=== PATIENT | male | born 1940 | race Caucasian/White ===

== ENCOUNTER → 2020-02-26 | Outpatient (CLI) | payer MEDICARE, BC, SELFPAY ==
--- NOTE | 2020-02-26 | IMM_PTH ---
PATIENT: KAMLESH ALANIZ LOC: [facility] U#:[id number] AGE/SX: 79/M ROOM: RE02/26/[address]: Dr. Eduardo Anna MD : 1940 BED: DIS: 02/26/2020 SPEC #: [id number] RECD: 02/27/20 12:00 STATUS: LESLYE REPadmini #: [id number] CUCA: 02/26/20 00:[address]: Eduardo Anna DEPT: IMMUNOHISTOCHEMISTRY RECD BY: Brooklynn Boateng ENTERED: 02/27/20 12:01 SP TYPE: IMMUNO OTHR DR: Dr. Margarito Boucher MD Tissues: B - PROSTATE RIGHT Procedures: Pankeratin (add) P40 (add) 34BE12 (initial) PHYSICIAN & INSTITUTION [place] [id number] SPECIMEN INFORMATION: Tissue Source: B - Right prostate, mid, core biopsy Clinical Info: Elevated PSA Specimen Number: [id number] CPT code: 73942, 23075 x2 METHODOLOGY: Deparaffinized sections of prefer/formalin-fixed tissue or PAP/DQ stained slides are incubated with monoclonal/polyclonal antibodies/oligonucleotide probes. Localization is made via biotin free immunoperoxidase method. Appropriate controls are performed and reacted as expected. Results on target cell population are indicated in the following table: RESULTS: ANTIBODY / CLONE RESULT Block B P40 (BC28) negative 34BE12 (34BE12) negative AE1-3 (AE1/AE3/PCK26) positive These tests were developed and their performance characteristics determined by [facility]. They may not have been cleared or approved by the U.S. Food and Drug Administration. The FDA has determined that such clearance or approval is not necessary. The above immunohistochemical/dualISH markers are ordered and reviewed by the Pathologist. INTERPRETATION: B. Right prostate, mid, core biopsy: Focal atypical small acinar proliferation (OSMANI). See comment. YAIR:jose 03/01/20 Comment: Atypical focus consisting of only two glands.
--- NOTE | 2020-02-26 08:00 | PROSBIL_PTH ---
PATIENT: KAMLESH ALANIZ LOC: [facility] U#:[id number] AGE/SX: 79/M ROOM: RE02/26/[address]: Dr. Eduardo Anna MD : 1940 BED: DIS: 02/26/2020 SPEC #: [id number] RECD: 02/26/20 11:36 STATUS: LESLYE REPadmini #: [id number] CUCA: 02/26/20 08:[address]: Eduardo Anna DEPT: SURGICAL PATHOLOGY RECD BY: Kelton Verde ENTERED: 02/27/20 09:18 SP TYPE: PROST BX LESLIE DR: Dr. Shane Ferrari, DO Tissues: A - PROSTATE RIGHT B - PROSTATE RIGHT C - PROSTATE RIGHT D - PROSTATE LEFT E - PROSTATE LEFT F - PROSTATE LEFT Procedures: PROSTATE BX HEADER OPERATION: Prostate biopsy PRE-OP DIAGNOSIS: Elevated PSA TISSUE SUBMITTED: A - Right apex, B - Right mid, C - Right base, D - Left apex, E - Left mid, F - Left base MICROSCOPIC DIAGNOSIS A. Right prostate, apex, core biopsy: Prostatic tissue, negative for malignancy. B. Right prostate, mid, core biopsy: Focal atypical small acinar proliferation (OSMANI). See comment. C. Right prostate, base, core biopsy: Prostatic tissue, negative for malignancy. D. Left prostate, apex, core biopsy: Prostatic tissue, negative for malignancy. Focal basal cell hyperplasia. E. Left prostate, mid, core biopsy: Prostatic tissue, negative for malignancy. F. Left prostate, base, core biopsy: Prostatic tissue, negative for malignancy. Focal mild chronic inflammation. SJ:jose 02/27/20 COMMENT B. Immunohistochemistry ([id number]) supports the above diagnosis. Atypical focus consists of only two glands. Case has been reviewed in consultation with Dr. Renner who concurs with the above diagnosis. IDC:AM MICROSCOPIC DESCRIPTION Slides are reviewed. GROSS DESCRIPTION A - Received is one container designated prostate, right apex. The specimen consists of one elongated fragment of light sierra-white soft tissue measuring 1 cm in length and 0.1 cm in diameter. The specimen is totally submitted in one cassette. B - Received is one container designated prostate, right mid. The specimen consists of two elongated fragments of light sierra-white soft tissue measuring 0.5 and 1 cm in length and 0.1 cm in diameter. The specimen is totally submitted in one cassette. C - Received is one container designated prostate, right base. The specimen consists of one elongated fragment of light sierra-white soft tissue measuring 1.5 cm in length and 0.1 cm in diameter. The specimen is totally submitted in one cassette. D - Received is one container designated prostate, left apex. The specimen consists of one elongated fragment of light sierra-white soft tissue measuring 1.1 cm in length and 0.1 cm in diameter. The specimen is totally submitted in one cassette. E - Received is one container designated prostate, left mid. The specimen consists of one elongated fragment of light sierra-white soft tissue measuring 1 cm in length and 0.1 cm in diameter. The specimen is totally submitted in one cassette. F - Received is one container designated prostate, left base. The specimen consists of one elongated fragment of light sierra-white soft tissue measuring 1.2 cm in length and 0.1 cm in diameter. The specimen is totally submitted in one cassette. / SJ:rg 02/26/20 TC:5 CPT: G0146
== END | disposition home or self-care (01) ==
PROVIDERS: PCP Family Medicine; Referring Provider Urology; Visit Provider Urology
DX: R97.20 Elevated prostate specific antigen [PSA] (principal)
CPT/HCPCS: 88305; 88341; 88342; G0416

== ENCOUNTER → 2020-09-23 08:39 | Outpatient (CLI) | payer MEDICARE, BC, SELFPAY ==
--- NOTE | 2020-09-23 08:44 | EKG12_ITS ---
Test Reason : PREOP Blood Pressure : / mmHG Vent. Rate : 060 BPM Atrial Rate : 060 BPM P-R Int : 206 ms QRS Dur : 098 ms QT Int : 436 ms P-R-T Axes : 037 -24 008 degrees QTc Int : 436 ms Normal sinus rhythm Inferior infarct , age undetermined Abnormal ECG Confirmed by MARTIN DUMONT, RAMIRO ([id number]), fan mail editor MENDY MEREDITH ([id number]) on 09/27/2020 10:25:14 A M Referred By: Eduardo Anna Confirmed By:MAMTA SALAZAR MD
== END ==
PROVIDERS: PCP Family Medicine; Referring Provider Urology; Visit Provider Urology
DX: Z01.812 Encounter for preprocedural laboratory examination (principal); Z11.59 Encounter for screening for other viral diseases; I10 Essential (primary) hypertension
CPT/HCPCS: 87635; 93005; C9803; U0005; U0003

== ENCOUNTER 2020-11-10 07:19 | Day surgery (SDC) | payer MEDICARE, BC, SELFPAY ==
[2020-11-10] VITALS (7 sets, daily range): BP systolic 111–134; BP diastolic 61–79; PULSE 57–80; RESP 16; TEMP 36.5–37; O2SAT 95–97; BMI 26.5
[2020-11-10] MEDS: Lactated Ringers 1,000 ML 100 ML IV ×2 (08:10→10:16)
--- NOTE | 2020-11-10 09:46 | PCM.HP.STD ---
HPI - General HPI Narrative KAMLESH ALANIZ, is a 80 M who presentsFor placement of gold markers and spacer gel for radiation treatments [facility] Medical History (Updated 11/10/20 @ 09:[address] Eduardo Anna MD) History of arthritis History of high cholesterol History of hypothyroidism History of low back pain History of prostate cancer Hypertension Non-smoker Pain aggravated by walking Home Medications levothyroxine 112 mcg PO DAILY 11/09/20 [History Last Taken 11/10/20] lisinopril-hydrochlorothiazide 1 tab PO DAILY 11/09/20 [History Last Taken Unknown] sildenafil 25 mg PO DAILY PRN 11/09/20 [History Last Taken Unknown] simvastatin 20 mg PO QHS 11/09/20 [History Last Taken Unknown] tamsulosin [Flomax] 0.4 mg PO QHS 11/09/20 [History Last Taken Unknown] ciprofloxacin HCl [Cipro] 500 mg PO BID #14 tab 11/10/20 [Rx Last Taken Unknown] Allergy/AdvReac Type Severity Reaction Status Date / Time No Known Allergies Allergy Verified 11/10/20 07:41 Surgical History (Updated 11/09/20 @ 09:48 by Wendy Olivares) History of colonoscopy History of lumbar fusion Hx of cardiac catheterization Hx of total knee arthroplasty Hx of total knee arthroplasty Social History Smoking Status: Never smoker Vital Signs Vital Signs Vital Signs: 11/10/20 08:02 Temperature 97.8 F Temperature Source Temporal Pulse Rate 80 Respiratory Rate 16 Respiratory Pattern Normal Blood Pressure 134/79 H Blood Pressure Mean 97 Blood Pressure Source Monitor Blood Pressure Position Semi-Fowlers Blood Pressure Location Right Arm Pulse Ox 96 Oxygen Delivery Method Room Air Physical Exam Const alert and oriented x3 General Appearance: cooperative HEENT normocephalic, head/scalp atraumatic, EAC's normal and TM's normal bilaterally Eyes PERRL and EOMs intact bilaterally Pupil: sluggish Neck no lymphadenopathy, supple and no JVD General: trachea midline Lymph Lymphatic: no lymphadenopathy noted, lymphedema and lymphadenopathy Resp normal respiratory effort, normal air movement and clear to auscultation bilaterally Cardio regular rate, regular rhythm and peripheral pulses 2+ throughout GI soft to palpation, non-tender and non-distended Extremity normal capillary refill and no clubbing, cyanosis or edema General Extremity: no tenderness to palpation of joints or extremities Skin no rashes or lesions noted General Skin Exam: turgor normal Lesions: no lesions Rashes: no rashes Neuro CN's II-XII intact bilaterally Speech: speech normal Motor Exam: strength 5/5 throughout; Negative for general weakness Psych thought process normal, cooperative and affect normal Appearance: appropriate Assessment & Plan Assessment/Plan (1) Prostate cancer: Status: Acute Code(s): C61 - Malignant neoplasm of prostate Plan: Plan to place gold markers and spacer gel in the OR
[2020-11-10] MEDS: Cefazolin 2 GM in 0.9% Normal Saline 100 ML IV (09:47)
--- NOTE | 2020-11-10 09:48 | PCM.DC ---
Discharge Instructions Outpatient Procedure Reason For Visit: SPACE OAR, GOLD MARKERS Diet Discharge Diet: No restrictions Activity Discharge Activity: Return to Normal Activity May resume sexual activity in: No Restrictions Dressing / Incision Call your doctor if you observe: Fever of 101 or Higher Follow Up Care Test Results: Test results from this visit will be discussed in further detail at your follow-up appointment, if applicable. Discharge Plan Admission Primary Reason for Your Visit: placement of gold markers and spacer gel for radiation planning. Attending Provider: Eduardo Anna Primary Care Provider: Margarito Boucher Discharge Orders/Prescriptions Prescriptions: New ciprofloxacin HCl [Cipro] 500 mg tablet 500 mg PO BID Qty: 14 RF: 0 No Action sildenafil 25 mg Tablet 25 mg PO DAILY PRN (Reason: Erectile Dysfunction) RF: 0 tamsulosin [Flomax] 0.4 mg Capsule 0.4 mg PO QHS RF: 0 simvastatin 20 mg Tablet 20 mg PO QHS RF: 0 lisinopril-hydrochlorothiazide 20-25 mg Tablet 1 tab PO DAILY RF: 0 levothyroxine 112 mcg Capsule 112 mcg PO DAILY RF: 0 Referrals: Margarito Boucher MD [Primary Care Provider] -
--- NOTE | 2020-11-10 10:10 | OP.PCM_ITS ---
Report of Operation Date of Procedure: 11/10/20 Pre-Operative Diagnosis: Prostate cancer Post-Operative Diagnosis: Same Surgery/Procedure Performed:: Transrectal ultrasound guided placement of gold fiducial markers and transrectal ultrasound guided placement of a spacer organ matrix gel Description of Surgical Findings:: Patient was taken back to the operating room, after induction of anesthesia, he was placed in dorsolithotomy position. The patient had a bowel prep preoperatively. He was given IV antibiotics preoperatively. He underwent a timeout procedure. He was marked and the procedure was reviewed with the operating room staff. Once he was in dorsolithotomy position. The genitals and perineum were prepped and draped in the usual sterile fashion. I then introduced a biplanar ultrasound probe into the rectum and performed ultrasonography on the prostate. The prostate seminal vesicles, the base, the mid prostate, the apex were identified. The Denonvilliers' fascia was also identified. I first advanced the first marker in the patient's right side to the mid prostate and deployed the first memorial marker designer. The second memorial marker designer was then advanced under ultrasound guidance to the patient's left mid prostate . And finally the third memorial marker designer was advanced of the prostate left apex and deployed under ultrasound guidance. All 3 markers were confirmed to be present within the prostate on ultrasonography. The genitals and perineum were prepped and draped in usual sterile fashion. I then introduced a biplanar ultrasound probe into the rectum and performed ultrasonography and identified the Denonvilliers' fascia the prostate mid base and apex and seminal vesicles. The spacer gel mix was then prepared on the back table per manufactures instruction. Under ultrasound guidance in the midline perineum a bevel needle down we advanced through the perineum below the prostate into the space of Denonvilliers' fascia. This space which could be identified by ultrasound with a bright white layer between the prostate and the rectum. I then injected a puff of normal saline to identify the space further. After I confirmed that the needle was in the correct space in the mid prostate and the space of Denonvilliers' fascia between the rectum and the prostate. Then over the course of 15 seconds the gel matrix was injected slowly there was nice separation between the prostate and the rectum at the gel matrix was injected. The position of the gel matrix was confirmed by ultrasound. Then the injection needle was removed intact. Patient's perineum was cleaned patient was taken out of stirrups and then taken back to the PACU in good condition. Type of Anesthesia: General Admit VTE Documentation VTE Present on Admission: No VTE Mechan Device Prophylaxis: SCD's
== END 2020-11-10 12:10 ==
LOC: SDC 07:19 → AC 07:20
PROVIDERS: PCP Family Medicine; Referring Provider Urology; Visit Provider Urology
PROC: (CPT 55874; principal; 2020-11-10 09:10)
DX: C61 Malignant neoplasm of prostate (principal); R97.20 Elevated prostate specific antigen [PSA]; N40.1 Benign prostatic hyperplasia with lower urinary tract symptoms; R35.0 Frequency of micturition; R35.1 Nocturia; R39.12 Poor urinary stream; I10 Essential (primary) hypertension; E78.00 Pure hypercholesterolemia, unspecified; E03.9 Hypothyroidism, unspecified; M19.90 Unspecified osteoarthritis, unspecified site; Z79.899 Other long term (current) drug therapy
CPT/HCPCS: 00902; 55874; 55876; J7120; J2405

== ENCOUNTER → 2020-11-25 13:37 | Outpatient (CLI) | payer MEDICARE, BC, SELFPAY ==
[2020-11-10 08:02] VITALS: BMI 26.5
[2020-11-25 15:14] LABS: Absolute Lymphocyte Count 2.37 X10^3/uL (0.83-4.51); Absolute Neutrophil Count 5.1 X10^3/uL (2.0-7.7); Basophil# 0.02 X10^3/uL; Basophil% 0.2 % (0-1); Eosinophil# 0.09 X10^3/uL; Eosinophils% 1.1 % (0-5); Hematocrit 41.6 % (40-54); Hemoglobin 13.5 g/dL (13.0-16.5); Lymphocyte # 2.37 X10^3/ul (0.83-4.51); Lymphocyte % 28.5 % (19-41); Mean Corp Hgb Conc 32.5 g/dL (32-36); Mean Corpuscular Hgb 30.2 pg (27.0-32.0); Mean Corpuscular Volume 93.1 fL (80-94); Mean Platelet Vol. 8.8 fl (6.2-12.0); Monocyte% 8.4 % (0-10); NRBC Flagged by Analyzer 0 % (0-5); Neutrophil # 5.06 X10^3/uL (2.7-7.7); Platelet Count 189 K/mm3 (150-450); RBC Distribution Width CV 13.2 % (11.6-14.6); RBC Distribution Width SD 45.2 fl (35.1-43.9); Red Blood Count 4.47 M/mm3 (4.6-6.2); White Blood Count 8.3 K/mm3 (4.4-11.0)
[2020-11-25 15:31] LABS: Creatinine, Serum 1.18 mg/dL (0.70-1.30); EST Glomerular Filtration Rate 63 mL/min (>60); Est Glom Filt Rate - Afr Amer 77 mL/min (>60)
== END ==
PROVIDERS: PCP Family Medicine; Referring Provider Radiology Radiation Oncology; Visit Provider Radiology Radiation Oncology
DX: Z01.818 Encounter for other preprocedural examination (principal); C61 Malignant neoplasm of prostate
CPT/HCPCS: 36415; 82565; 84153; 85025

== ENCOUNTER → 2020-11-26 13:48 | Outpatient (CLI) | payer MEDICARE, BC, SELFPAY ==
[2020-11-10 08:02] VITALS: BMI 26.5
--- NOTE | 2020-11-26 13:53 | CT_ITS ---
STUDY: CT PELVIS WITH CONTRAST REASON FOR EXAM: Male, 80 years old. PROSTATE CA. Radiation therapy planning. RADIATION DOSAGE (If Supplied By Facility): CTDIvol = ( 23.47 ) mGy, DLP = ( 2132.96 ) mGycm TECHNIQUE: Transaxial imaging of the pelvis was performed without oral contrast. IV 100ML ISOVUE 300 was administered intravenously. Individualized dose optimization techniques were used for this CT. COMPARISON: None. FINDINGS: Normal urinary bladder. The prostate measures 5.3 cm x 5.6 cm. This causes indentation of the bladder base. Metallic radiation seeds are seen within the prostate gland. Normal visualized small intestine. Normal visualized colon. There is no pelvic fluid. There is no pelvic lymphadenopathy or mass lesion. There is diffuse atherosclerotic calcification of the pelvic arteries. Small bilateral inguinal hernias worse on the left side. Small umbilical hernia containing fat. Degenerative changes of the lumbar spine. Prior fusion of the lower lumbar spine. CT/CT Pelvis W/CONT Therapy IMPRESSION: Prostatic enlargement with indentation of the bladder base. Electronically Signed: Apolinar Del Toro MD at 14:49 EDT , Service support ,
== END ==
PROVIDERS: PCP Family Medicine; Referring Provider Radiology Radiation Oncology; Visit Provider Radiology Radiation Oncology
DX: C61 Malignant neoplasm of prostate (principal); Z79.899 Other long term (current) drug therapy
CPT/HCPCS: 51600; 72193; Q9965; Q9967

== ENCOUNTER → 2020-12-22 09:26 | Outpatient (CLI) | payer MEDICARE, BC, SELFPAY ==
[2020-11-10 08:02] VITALS: BMI 26.5
[2020-12-22 12:04] LABS: Absolute Lymphocyte Count 0.77 X10^3/uL (0.83-4.51); Absolute Neutrophil Count 3.2 X10^3/uL (2.0-7.7); Basophil# 0.01 X10^3/uL; Basophil% 0.2 % (0-1); Eosinophil# 0.08 X10^3/uL; Eosinophils% 1.7 % (0-5); Hematocrit 37.6 % (40-54); Hemoglobin 12.5 g/dL (13.0-16.5); Lymphocyte # 0.77 X10^3/ul (0.83-4.51); Lymphocyte % 16.1 % (19-41); Mean Corp Hgb Conc 33.2 g/dL (32-36); Mean Corpuscular Hgb 30.8 pg (27.0-32.0); Mean Corpuscular Volume 92.6 fL (80-94); Mean Platelet Vol. 9.3 fl (6.2-12.0); Monocyte# 0.67 X10^3/uL; NRBC Flagged by Analyzer 0 % (0-5); Neutrophil # 3.22 X10^3/uL (2.7-7.7); Neutrophil % 67.6 % (47-70); Platelet Count 132 K/mm3 (150-450); RBC Distribution Width CV 13.2 % (11.6-14.6); RBC Distribution Width SD 45.1 fl (35.1-43.9); Red Blood Count 4.06 M/mm3 (4.6-6.2); White Blood Count 4.8 K/mm3 (4.4-11.0)
== END ==
PROVIDERS: PCP Family Medicine; Referring Provider Radiology Radiation Oncology; Visit Provider Radiology Radiation Oncology
DX: C61 Malignant neoplasm of prostate (principal)
CPT/HCPCS: 36415; 85025

== ENCOUNTER → 2022-02-20 | Outpatient (CLI) | payer MEDICARE, BC, SELFPAY ==
[2022-02-20 10:59] LABS: PSA,Total- Diagnostic 0.02 ng/mL (0.0-4.0)
== END | disposition home or self-care (01) ==
LOC: LAB 08:45
PROVIDERS: PCP Family Medicine; Referring Provider Urology; Visit Provider Urology
DX: C61 Malignant neoplasm of prostate (principal)
CPT/HCPCS: 36415; 84153

== ENCOUNTER → 2022-08-21 | Outpatient (CLI) | payer MEDICARE, BC, SELFPAY ==
[2022-08-21 10:34] LABS: PSA,Total- Diagnostic 0.01 ng/mL (0.0-4.0)
== END | disposition home or self-care (01) ==
LOC: LAB 09:46
PROVIDERS: PCP Family Medicine; Referring Provider Registered Nurse; Visit Provider Registered Nurse
DX: C61 Malignant neoplasm of prostate (principal)
CPT/HCPCS: 36415; 84153

== ENCOUNTER → 2023-07-31 | Outpatient (CLI) | payer MEDICARE, BC, SELFPAY ==
--- OUTSIDE RECORDS SUMMARY | 2023-07-31 09:26 | XMS RPT_ITS | CCD ---
Author Name Unknown Address [address] [place] [address] Organization [facility] Care Team Providers Care Mixing Machine Tender Cork Gasket Name Role Phone ABELINO BOUCHER Unavailable Unavailable SAPNA EASTMAN Unavailable Unavailab ABELINO Cleaning Unavailable Unavailable ABELINO BOUCHER Unavailable Unavailable Andrez Alvarado Unavailable Unavailable Abelino Boucher Unavailable Unavailable Abelino Boucher Unavailable Abelino Boucher Primary Care Provider Abelino Boucher Unavailable Unavailable Unavailable Abelino Boucher Unavailable Zeina Stevens Unavailable Unavailable Dr. Abelino Boucher Referring Unavailab malgorzata Boucher, Dr. Abelino Rousseau Attending Unavailab Dr. Abelino Cleaning Primary Care UnavailAbelino Mendoza MD Primary Care Provider Abelino Boucher MD Unavailable [phone] ABELINO BOUCHER Attending Unavailable ABELINO BOUCHER Primary Care Unavailable iMchaela Clark Unavailable Dr. Abelino Barnard Primary Care Unavailab Ms. Zeina Stewart Attending Unavail able Ms. Michaela Clark Attending Dr. Abelino Segura Primary Care Unavailab ABELINO Cleaning Primary Care Unavailable MICHAELA CLARK Attending Unavailable MICHAELA CLARK Referring Unavailable ABELINO BOUCHER Primary Care Unavailable Medications Current Medications Medication Drug Class(es) Dates Sig (Normalized) Sig (Original) [id number] 200 actuat albuterol 0.09 mg/actuat metered dose inhaler (1 source) beta2-Adrenergic Agonist Start: 04-18-2023 End: 04-17-2024 take 2 puff(s) by inhalation every six hours for wheezing albuterol 90 mcg/actuation inhaler Indications: Wheezing , Acute cough , Acute bronchitis, unspecified organism Inhale 2 puffs every 6 hours if needed for wheezing. 18 g 0 04/18/2023 04/17/2024 Active albuterol 0.833 mg/ml / ipratropium bromide 0.167 mg/ml inhalation solution (1 source) Anticholinergic, beta2-Adrenergic Agonist Start: 04-18-2023 ipratropium-albute roL (Duo-Neb) 0.5-2.5 mg/3 mL nebulizer solution 3 mL amoxicillin 875 mg / clavulanate 125 mg oral tablet (1 source) Penicillin-class Antibacterial Start: 04-18-2023 End: 04-25-2023 take 1 tablet by mouth twice daily amoxicillin-pot clavulanate (Augmentin) 875-125 mg tablet Indications: Acute bronchitis, unspecified organism Take 1 tablet (875 mg) by mouth 2 times a day for 7 days. 14 tablet 0 04/18/2023 04/25/2023 Active azithromycin 250 mg oral tablet (2 sources) Macrolide Antimicrobial Start: 04-12-2023 take 2 tablets by mouth once, then take 1 tablet by mouth once daily azithromycin 250 mg oral tablet ; Take 2 tabs (500mg) x 1 days, then 1 tab (250mg) once daily x 4 days Quantity: 6 Refills: 0 Ordered: 12-Apr-2023 Michaela Clark Start: 12-Apr-2023 Generic Substitution Allowed Comments: Do not take dairy products, antacids, or iron preparations within one hour of this medication.Finish all this medication unless otherwise directed by prescriber. Completed/Discontinued Medications Medication Drug Class(es) Dates Sig (Normalized) Sig (Original) fexofenadine hydrochloride 180 mg oral tablet (8 sources) Histamine-1 Receptor Antagonist Start: 10-02-2019 take 1 tablet by mouth once daily as needed Fexofenadine HCl - 180 MG Oral Tablet TAKE 1 TABLET DAILY NEEDED FOR ALLERGIES. Quantity: 90 Refills: 3 Ordered: 19-Jan-2021 Abelino Boucher MD Start : 02-Oct-2019 Active hydrocortisone acetate 25 mg rectal suppository (4 sources) Corticosteroid Start: 09-13-2021 End: 03-08-2022 Anusol-HC 25 MG Rectal Suppository INSERT 1 SUPPOSITORY RECTALLY DAILY. Quantity: 7 Refills: 1 Ordered: 13-Sep-2021 Abelino Boucher MD Start : 13-Sep-2021 End : 08-Mar-2022 Complete Problems Active Problems Problem Classification Problem Date Documented Da te Episodic/Chronic Acquired foot deformities (10 sources) Foot-drop; Translations: [Other acquired deformities of ankle and foot] Episodic Acute bronchitis (6 sources) Acute bronchitis; Translations: [Acute bronchitis] Onset: 04-12-2023 06-21-2022 Episodic Cancer of prostate (8 sources) Malignant tumor of prostate; Translations: [Malignant neoplasm of prostate] Chronic Chronic kidney disease (5 sources) Chronic kidney disease stage 3A ; Translations: [Chronic kidney disease, Stage III (moderate)] Onset: 03-15-2023 03-15-2023 Chronic Chronic kidney disease (2 sources) Chronic kidney disease; Translations: [Chronic kidney disease, stage 3a (CMS/HCC)] Onset: 03-15-2023 Deficiency and other anemia (8 sources) Anemia; Translations: [Anemia, unspecified] Episodic Disorders of lipid metabolism (15 sources) Hyperlipidemia; Translations: [Other and unspecified hyperlipidemia] Onset: 03-15-2023 03-15-2023 Chronic Essential hypertension (13 sources) Hypertensive disorder; Translations: [Unspecified essential hypertension] Onset: 03-15-2023 03-15-2023 Chronic Genitourinary symptoms and ill-defined conditions (2 sources) Nocturia; Translations: [Nocturia] Episodic Headache; including migraine (1 source) Headache; including migraine; Translations: [Headache, unspecified] Onset: 04-12-2023 Hemorrhoids (5 sources) External hemorrhoids; Translations: [External hemorrhoids without mention of complication] Episodic Hyperplasia of prostate (2 sources) Benign prostatic hyperplasia; Translations: [BPH (benign prostatic hyperplasia)] Chronic Immunizations and screening for infectious disease (3 sources) Immunization due; Translations: [Encounter for immunization] Onset: 03-15-2023 03-15-2023 Episodic Intestinal infection (2 sources) Diarrhea of presumed infectious origin; Translations: [Diarrhea of presumed infectious origin] Episodic Malaise and fatigue (1 source) Other malaise; Translations: [Other malaise] Onset: 04-12-2023 Episodic Other connective tissue disease (2 sources) Unspecified rotator cuff tear or rupture of left shoulder, not specified as traumatic; Translations: [Unspecified rotator cuff tear or rupture of left shoulder, not specified as traumatic] Onset: 04-01-2018 Episodic Other lower respiratory disease (3 sources) Cough; Translations: [Acute cough] 06-21-2022 Episodic Past or Other Problems Problem Classification Problem Date Documented Da te Episodic/Chronic Unclassified (2 sources) Onset: 03-15-2023 03-15-2023 Unclassified (1 source) Acute cough; Translations: [Acute cough] Onset: 04-18-2023 NEGATED: Highlighted row has not occurred!Residual codes; unclassified (2 sources) Disease Episodic Results Test Name Value Interpretation Reference Range Facil ity Vital Signs Date Time Vital Sign Value Performing Clinician Facility 04-18-2023 11:36-0400 Body height 182.9 cm Michaela Clark SHUTTLER CAR-OPHTHALMOLOGIST Work Phone: [facility] 04-18-2023 11:36-0400 Body mass index (BMI) [Ratio] 27.12 kg/m2 Michaela Clark SHUTTLER CAR-OPHTHALMOLOGIST Work Phone: [facility] 04-18-2023 11:36-0400 Body temperature 97.59 [degF] Michaela Clark SHUTTLER CAR-OPHTHALMOLOGIST Work Phone: [facility] 04-18-2023 11:36-0400 Body weight 90.72 kg Michaela Clark SHUTTLER CAR-OPHTHALMOLOGIST Work Phone: [facility] 04-18-2023 11:36-0400 Diastolic blood pressure 74 mm[Hg] Michaela Clark SHUTTLER CAR-OPHTHALMOLOGIST Work Phone: [facility] 04-18-2023 11:36-0400 Heart rate 68 /min Michaela Clark SHUTTLER CAR-OPHTHALMOLOGIST Work Phone: [facility] 04-18-2023 11:36-0400 Respiratory rate 14 /min Michaela Clark SHUTTLER CAR-OPHTHALMOLOGIST Work Phone: [facility] 04-18-2023 11:36-0400 SaO2% (BldA) [Mass fraction] 94 % Michaela Clark SHUTTLER CAR-OPHTHALMOLOGIST Work Phone: [facility] 04-18-2023 11:36-0400 Systolic blood pressure 137 mm[Hg] Michaela Clark SHUTTLER CAR-OPHTHALMOLOGIST Work Phone: [facility] 04-12-2023 11:48-0400 Body height 191 cm Abelino Boucher Other Phone: [facility] 04-12-2023 11:48-0400 Body temperature 97.34 [degF] Abelino Boucher Other Phone: [facility] 04-12-2023 11:48-0400 Diastolic blood pressure 69 mm[Hg] Abelino Boucher Other Phone: [facility] 04-12-2023 11:48-0400 Heart rate 53 /min Abelino Boucher Other Phone: [facility] 04-12-2023 11:48-0400 Respiratory rate 12 /min Abelino Boucher Other Phone: [facility] 04-12-2023 11:48-0400 SaO2% (BldA) [Mass fraction] 95 % Abelino Boucher Other Phone: [facility] 04-12-2023 11:48-0400 Systolic blood pressure 146 mm[Hg] Abelino Boucher Other Phone: [facility] 03-15-2023 08:11-0400 Body height 181 cm Abelino Boucher MD Work Phone: [facility] 03-15-2023 08:11-0400 Body mass index (BMI) [Ratio] 28.34 kg/m2 Abelino Boucher MD Work Phone: [facility] 03-15-2023 08:11-0400 Body weight 92.81 kg Abelino Boucher MD Work Phone: [facility] 03-15-2023 08:11-0400 Diastolic blood pressure 68 mm[Hg] Abelino Boucher MD Work Phone: [facility] 03-15-2023 08:11-0400 Heart rate 58 /min Abelino Boucher MD Work Phone: [facility] 03-15-2023 08:11-0400 SaO2% (BldA) [Mass fraction] 96 % Abelino Boucher MD Work Phone: [facility] 03-15-2023 08:11-0400 Systolic blood pressure 118 mm[Hg] Abelino Boucher MD Work Phone: [facility] 09-08-2022 08:15-0500 Body height 180.98 cm Abelino L Sander Work Phone: [facility] Work Phone: 09-08-2022 08:15-0500 Body mass index (BMI) [Ratio] 27.79 kg/m2 Abelino Georgeer Work Phone: [facility] Work Phone: 09-08-2022 08:15-0500 Body surface area Derived from formula 2.12 m2 Abelino Georgeer Work Phone: [facility] Work Phone: 09-08-2022 08:15-0500 Body weight 91.03 kg Abelino Schaffer Sander Work Phone: [facility] Work Phone: 09-08-2022 08:15-0500 Diastolic blood pressure 60 mm[Hg] Abelino L Sander Work Phone: [facility] Work Phone: 09-08-2022 08:15-0500 Heart rate 59 /min Abelino Karime Sander Work Phone: [facility] Work Phone: 09-08-2022 08:15-0500 Systolic blood pressure 110 mm[Hg] Abelino L Sander [facility] Work Phone: 06-21-2022 13:29-0500 Body height 183 cm Abelino Sander Other Phone: [facility] 06-21-2022 13:29-0500 Body temperature 97.16 [degF] Abelino Sander Other Phone: [facility] 06-21-2022 13:29-0500 Diastolic blood pressure 72 mm[Hg] Abelino Sander Other Phone: [facility] 06-21-2022 13:29-0500 Heart rate 69 /min Abelino Sander Other Phone: [facility] 06-21-2022 13:29-0500 Respiratory rate 16 /min Abelino Sander Other Phone: [facility] 06-21-2022 13:29-0500 SaO2% (BldA) [Mass fraction] 97 % Abelino Sander Other Phone: [facility] 06-21-2022 13:29-0500 Systolic blood pressure 123 mm[Hg] Abelino Sander Other Phone: [facility] 03-08-2022 08:11-0400 Body height 180.97 cm Abelino L Sander Work Phone: [facility] Work Phone: 03-08-2022 08:11-0400 Body mass index (BMI) [Ratio] 27.28 kg/m2 Abelino L Sander Work Phone: [facility] Work Phone: 03-08-2022 08:11-0400 Body surface area Derived from formula 2.1 m2 Abelino L Sander Work Phone: [facility] Work Phone: 08-24-2022 08:11-0400 Body weight 89.36 kg Abelino L Sander Work Phone: [facility] Work Phone: 03-08-2022 08:11-0400 Diastolic blood pressure 65 mm[Hg] Abelino L Sander Work Phone: [facility] Work Phone: 03-08-2022 08:11-0400 Heart rate 63 /min Abelino L Sander Work Phone: [facility] Work Phone: 03-08-2022 08:11-0400 Respiratory rate 16 /min Abelino L Sander Work Phone: [facility] Work Phone: 03-08-2022 08:11-0400 SaO2% (BldA) [Mass fraction] 97 % Abelino L Sander Work Phone: [facility] Work Phone: 03-08-2022 08:11-0400 Systolic blood pressure 117 mm[Hg] Abelino L Sander Work Phone: [facility] Work Phone: 09-13-2021 08:59-0500 Body height 181 cm Abelino L Sander Work Phone: [facility] Work Phone: 09-13-2021 08:59-0500 Body mass index (BMI) [Ratio] 28.55 kg/m2 Abelino L Sander Work Phone: [facility] Work Phone: 09-13-2021 08:59-0500 Body surface area Derived from formula 2.14 m2 Abelino L Sander Work Phone: [facility] Work Phone: 09-13-2021 08:59-0500 Body weight 93.53 kg Abelino L Sander Work Phone: [facility] Work Phone: 09-13-2021 08:59-0500 Diastolic blood pressure 88 mm[Hg] Abelino L Sander Work Phone: [facility] Work Phone: 09-13-2021 08:59-0500 Heart rate 63 /min Abelino L Sander Work Phone: [facility] Work Phone: 09-13-2021 08:59-0500 Systolic blood pressure 134 mm[Hg] Abelino L Sander Work Phone: [facility] Work Phone: 02-15-2021 09:02-0400 Body height 181 cm Abelino L Sander Work Phone: [facility] Work Phone: 02-15-2021 09:02-0400 Body mass index (BMI) [Ratio] 26.78 kg/m2 Abelino L Sander Work Phone: [facility] Work Phone: 02-15-2021 09:02-0400 Body surface area Derived from formula 2.08 m2 Abelino L Sander Work Phone: [facility] Work Phone: 02-15-2021 09:02-0400 Body temperature 97.3 [degF] Abelino L Sander Work Phone: [facility] Work Phone: 02-15-2021 09:02-0400 Body weight 87.72 kg Abelino L Sander Work Phone: [facility] Work Phone: 02-15-2021 09:02-0400 Diastolic blood pressure 70 mm[Hg] Abelino L Sander Work Phone: [facility] Work Phone: 02-15-2021 09:02-0400 Heart rate 69 /min Abelino L Sander Work Phone: [facility] Work Phone: 02-15-2021 09:02-0400 Systolic blood pressure 110 mm[Hg] Abelino L Sander Work Phone: [facility] Work Phone: 01-19-2021 11:24-0400 Body height 181 cm Abelino L Sander Work Phone: [facility] Work Phone: 01-19-2021 11:24-0400 Body mass index (BMI) [Ratio] 26.9 kg/m2 Abelino L Sander Work Phone: [facility] Work Phone: 01-19-2021 11:24-0400 Body surface area Derived from formula 2.09 m2 Abelino L Sander Work Phone: [facility] Work Phone: 01-19-2021 11:24-0400 Body temperature 97.7 [degF] Abelino L Sander Work Phone: [facility] Work Phone: 01-19-2021 11:24-0400 Body weight 88.13 kg Abelino L Sander Work Phone: [facility] Work Phone: 01-19-2021 11:24-0400 Diastolic blood pressure 68 mm[Hg] Abelino L Sander Work Phone: [facility] Work Phone: 01-19-2021 11:24-0400 Heart rate 64 /min Abelino L Sander Work Phone: [facility] Work Phone: 01-19-2021 11:24-0400 Systolic blood pressure 125 mm[Hg] Abelino L Sander Work Phone: [facility] Work Phone: 01-21-2020 09:53-0400 BMI (Body Mass Index) 27.68 kg/m2 Abelino Boucher [facility] Work Phone: 01-21-2020 09:53-0400 Body Temperature 97.1 [degF] Abelino Boucher [facility] Work Phone: 01-21-2020 09:53-0400 Body weight 89.39 kg Abelino Boucher [facility] Work Phone: 01-21-2020 09:53-0400 BP Diastolic 72 mm[Hg] Abelino Boucher [facility] Work Phone: 01-21-2020 09:53-0400 BP Systolic 110 mm[Hg] Abelino Boucher [facility] Work Phone: 01-21-2020 09:53-0400 BSA (Body Surface Area) 2.09 m2 Abelino Boucher [facility] Work Phone: 01-21-2020 09:53-0400 Height 179.71 cm Abelino Boucher [facility] Work Phone: 01-21-2020 09:53-0400 Pulse (Heart Rate) 64 /min Abelino Boucher [facility] Work Phone: 10-03-2019 13:05-0400 BMI (Body Mass Index) 28.66 kg/m2 Andrez Alvarado [facility] Work Phone: 10-03-2019 13:05-0400 Body Temperature 98.4 [degF] Andrez Alvarado [facility] Work Phone: Encounters Encounter Date Encounter Type Care Provider Facility Start: 04-18-2023 End: 04-19-2023 ambulatory MICHAELA Saba [facility] Start: 04-18-2023 End: 10-04-2023 ambulatory ABELINO L SANDER [facility] Start: 04-18-2023 End: 04-18-2023 Office outpatient visit 25 minutes Michaela Clark SHUTTLER CAR-OPHTHALMOLOGIST Work Phone: [facility] Procedures Date Procedure Procedure Detail Performing Clinician Start: 04-18-2023 XR CHEST 2 VIEWS DIOGO Walls SANDER Start: 03-12-2023 Lipid 1996 panel - S heri or Plasma Abelino Boucher MD Work Phone: Start: 08-30-2022 Thyrotropin [Units/v olume] in Serum or Plasma Abelino Boucher MD Work Phone: Start: 01-15-2020 Assay of prostate sp ecific antigen free Abelino Boucher Start: 10-03-2019 Iadna-dna/rna gi pth gn multiplex probe tq 6-11 Andrez Alvarado Start: 10-03-2019 Inf agent det nuclei c acid clostridium amp probe Andrez Alvarado Start: 10-03-2019 Ova and Parasite + Giardia/Crypto Ag Andrez Alvarado Appendectomy Andrez Alvarado Arthroplasty of knee Andrez parikh Cardiac catheterization Rishabh Alvarado Colonoscopy Andrez Alvarado Operation on scrotum Andrez parikh Procedure on back Andrez carmona Scrotum and testicle operation Andrez Alvarado Tonsillectomy and adenoidectomy Andrez Alvarado Plan of Treatment Date Care Activity Detail Author Start: 03-12-2028 Lipid panel Lipid Panel [facility] Start: 03-16-2024 Medicare Annual Wellness Visit Medicare Annual Wellness Visit (AWV) [facility] Start: 09-13-2023 End: 03-15-2024 Basic metabolic 2000 panel - Serum or Plasma Basic Metabolic Panel Lab Routine Stage 3a chronic kidney disease (CMS/HCC) Expected: 09/13/2023 (Approximate), Expires: 03/15/2024 [facility] Service Area Work Phone: Immunizations Immunization Date Immunization Notes Care Provider Fa cility 03-15-2023 zoster vaccine-recombinant adjuvanted (Shingrix) 50 mcg/0.5 mL vaccine Abelino Boucher MD Work Phone: [facility] Work Phone: 05-10-2022 Fluzone High-Dose Quadrivalent 0.7 ML Intramuscular Suspension Prefilled Syringe Abelino Boucher Work Phone: [facility] Work Phone: 05-10-2022 influenza virus vaccine, unspecified formulation Abelino Boucher MD Work Phone: [facility] Work Phone: 05-02-2021 influenza virus vaccine, unspecified formulation Abelino Boucher Work Phone: [facility] Work Phone: Payers Date Payer Category Payer Unknown 2017 Unknown [id number] 2006 Medicare [id number] 2006 Medicare MEDICARE MEDICAR E PART A & B [id number] 2006-Present [place] [id number] 2006 Medicare [id number] 2006 Medicare MEDICARE MEDICAR E PART A AND B [id number] 2006-Present [address] [place] [address] [id number] 1941 Unknown [id number] 1941 Unknown [id number] 1941 Unknown [id number] 1941 Unknown [id number] 1941 Unknown [id number] 1941 Unknown [id number] Social History Date Type Detail Facility Start: 04-01-2018 End: 03-15-2023 Tobacco smoking status NHIS Never smoker [facility] Start: 04-01-2018 End: 03-15-2023 Tobacco use and exposure Never used [facility] Start: 04-01-2018 Alcohol intake Current non-dr donor technician of alcohol (finding) [facility] Start: 1940 Sex Assigned At Not on file [facility] Start: 03-15-2023 Never a smoker Never a smoker [facility] Work Phone: Tobacco smoking consumption unknown [facility] Start: 03-15-2023 End: 04-18-2023 Alcohol intake Lifetime non-drinker (finding) [facility] Work Phone: Start: 03-15-2023 Gender identity Not on file [facility] Work Phone: Start: 04-08-2023 End: 04-18-2023 Exposure to SARS-CoV-2 (event) Not sure [facility] NEGATED: Highlighted row - - [facility] Work Phone: Functional Status Date Assessment Result Facility NEGATED: Highlighted row Functional performance Functional status health issues are not documented Disease [facility] Work Phone: Mental Status Date Assessment Result Facility NEGATED: Highlighted row Cognitive function [Interpretation] Cognitive status health issues are not documented Disease [facility] Work Phone: History of Present illness Narrative 04-18-2023 Michaela Clark APRN-OPHTHALMOLOGIST - 04/18/2023 10:55 AM EDT Note Date & Type Note Facility 04-18-2023 History of Present illness Narrative Presents for evaluation of URI. Symptoms including cough, wheezing, nassal congestion, body aches, malaise, and headache have been present for several days and refractory to OTC meds. No fever, chills, nausea, vomiting, abdominal pain, CP, or SOB. No exacerbating factors. No known COVID 19/flu exposure. Was treated last week with Zpak and prednisone. Did get better but yesterday symptoms began to worsen again. Vitals: 04/18/23 1136 BP: 137/74 Pulse: 68 Resp: 14 Temp: 36.4 C (97.6 F) SpO2: 94% No Known Allergies Medication Documentation Review Audit Reviewed by NINA Stoddard (Nurse Practitioner) on 04/18/23 at 1146 Medication Order Taking? Sig Documenting Provider Last Dose Status ipratropium-albuteroL (Duo-Neb) 0.5-2.5 mg/3 mL nebulizer solution 3 mL [id number] NINA Stoddard Active levothyroxine (Synthroid, Levoxyl) 112 mcg tablet [id number] Yes Take 1 tablet (112 mcg) by mouth once daily in the morning. Take before meals. as directed Abelino Boucher MD Taking Active lisinopriL-hydrochlorothiazide 20-25 mg tablet [id number] Yes Take 1 tablet by mouth once daily. Abelino Boucher MD Taking Active simvastatin (Zocor) 20 mg tablet [id number] Yes Take 1 tablet (20 mg) by mouth once daily at bedtime. Abelino Boucher MD Taking Active tamsulosin (Flomax) 0.4 mg 24 hr capsule [id number] Yes Take 1 capsule (0.4 mg) by mouth once daily. Abelino Boucher MD Taking Active Past Surgical History: Procedure Laterality Date OTHER SURGICAL HISTORY 10/02/2019 Cardiac catheterization OTHER SURGICAL HISTORY 10/02/2019 Appendectomy OTHER SURGICAL HISTORY 10/02/2019 Back surgery OTHER SURGICAL HISTORY 10/02/2019 Scrotal surgery OTHER SURGICAL HISTORY 10/02/2019 Knee replacement OTHER SURGICAL HISTORY 10/02/2019 Tonsillectomy with adenoidectomy OTHER SURGICAL HISTORY 10/02/2019 Testicular surgery OTHER SURGICAL HISTORY 09/13/2021 Colonoscopy XR chest 2 views Status: Final result PACS Images Show images for XR chest 2 views Signed by Signed Time Phone Pager Marisol Hernandez MD 04/18/2023 12:49 [id number] Exam Information Status Exam Begun Exam Ended Final 04/18/2023 12:27 04/18/2023 12:33 Study Result Narrative & Impression Interpreted By: Marisol Hernandez, STUDY: XR CHEST 2 VIEWS; 04/18/2023 12:33 pm INDICATION: Signs/Symptoms:cough. COMPARISON: None. ACCESSION NUMBER(S): [id number] ORDERING CLINICIAN: MICHAELA CLARK FINDINGS: No consolidation. Streaky bibasilar atelectasis. No pleural effusion or pneumothorax. Tortuous ectatic aorta. Normal heart size. No acute osseous abnormality. Degenerative changes in the spine. Partially visualized lumbar spinal fusion hardware. IMPRESSION: No acute cardiopulmonary abnormality. Signed by: Marisol Hernandez 04/18/2023 12:49 PM Dictation workstation: [id number] Kamlesh was seen today for nasal congestion and cough. Diagnoses and all orders for this visit: Wheezing (Primary) - ipratropium-albuteroL (Duo-Neb) 0.5-2.5 mg/3 mL nebulizer solution 3 mL - XR chest 2 views; Future - albuterol 90 mcg/actuation inhaler; Inhale 2 puffs every 6 hours if needed for wheezing. Acute cough - ipratropium-albuteroL (Duo-Neb) 0.5-2.5 mg/3 mL nebulizer solution 3 mL - XR chest 2 views; Future - predniSONE (Deltasone) 20 mg tablet; Take 1 tablet (20 mg) by mouth 2 times a day for 5 days. - albuterol 90 mcg/actuation inhaler; Inhale 2 puffs every 6 hours if needed for wheezing. Acute bronchitis, unspecified organism - amoxicillin-pot clavulanate (Augmentin) 875-125 mg tablet; Take 1 tablet (875 mg) by mouth 2 times a day for 7 days. - predniSONE (Deltasone) 20 mg tablet; Take 1 tablet (20 mg) by mouth 2 times a day for 5 days. - albuterol 90 mcg/actuation inhaler; Inhale 2 puffs every 6 hours if needed for wheezing. Other orders - ipratropium-albuteroL (Duo-Neb) 0.5-2.5 mg/3 mL nebulizer solution - [employer] Override Pull Patient's clinical presentation is otherwise unremarkable at this time. Patient is discharged with instructions to follow-up with primary care or seek emergency medical attention for worsening symptoms or any new concerns. documented in this encounter [facility] Work Phone: History of Present illness Narrative 03-15-2023 Abelino Boucher MD - 03/15/2023 8:00 AM EDT Note Date & Type Note Facility 03-15-2023 History of Present illness Narrative Subjective Reason for Visit: Kamlesh Murcia is an 82 y.o. male here for a Medicare Wellness visit. Past Medical, Surgical, and Family History reviewed and updated in chart. Reviewed all medications by prescribing practitioner or clinical pharmacist (such as prescriptions, OTCs, herbal therapies and supplements) and documented in the medical record. HPI Advance directives:. Advanced Care Planning discussed and documented advance care plan or surrogate decision maker documented in the medical record. Patient has living will. Patient has healthcare POA. Concerns with the patient's end of life decisions: DNR. ckd 3a to 2 with chronic anemia w/u by hem egfr February February htn no cp no palpitations Hyperlipidemia Has been off zocor for [address] Ly orders psa psa s/p xrt uro checks every 6 months no dysuria no hematuria nocturia x 3 all rhin states not on jacob mild sneezing Pneumovax 23/Prevnar 15: Pneumovax 23/Prevnar 15 vaccine was previously given. Shingles Vaccine: states had the zostavax Prostate cancer screening: Screening is current. Colorectal Cancer Screening: no bowel changes Abdominal Aortic Aneurysm screening: screening not indicated. Patient Care Team: Abelino Boucher MD as PCP - General Abelino Boucher MD as PCP - [facility] ACO Attributed Provider Review of Systems Objective Vitals: BP 118/68 Pulse 58 Ht 1.81 m (5' 11.25 ) Wt 92.8 kg (204 lb 9.6 oz) SpO2 96% BMI 28.34 kg/m Physical Exam Constitutional: Appearance: Normal appearance. HENT: Head: Normocephalic and atraumatic. Eyes: Conjunctiva/sclera: Conjunctivae normal. Pupils: Pupils are equal, round, and reactive to light. Cardiovascular: Rate and Rhythm: Normal rate and regular rhythm. Heart sounds: Normal heart sounds. Pulmonary: Effort: Pulmonary effort is normal. Breath sounds: Normal breath sounds. Musculoskeletal: Right lower leg: Edema (trace kody) present. Left lower leg: Edema present. Lymphadenopathy: Cervical: No cervical adenopathy. Skin: Coloration: Skin is not jaundiced. Neurological: General: No focal deficit present. Mental Status: He is alert and oriented to person, place, and time. Psychiatric: Mood and Affect: Mood normal. Behavior: Behavior normal. Thought Content: Thought content normal. Judgment: Judgment normal. Assessment/Plan Problem List Items Addressed This Visit Hyperlipidemia Relevant Medications simvastatin (Zocor) 20 mg tablet Elevated prostate specific antigen (PSA) Relevant Medications tamsulosin (Flomax) 0.4 mg 24 hr capsule Stage 3a chronic kidney disease (CMS/HCC) Other Visit Diagnoses Routine general medical examination at health care facility - Primary Acquired hypothyroidism Relevant Medications levothyroxine (Synthroid, Levoxyl) 112 mcg tablet Primary hypertension Relevant Medications lisinopriL-hydrochlorothiazide 20-25 mg tablet Immunization due Relevant Medications zoster vaccine-recombinant adjuvanted (Shingrix) 50 mcg/0.5 mL vaccine documented in this encounter [facility] Work Phone: History of Present illness Narrative 09-08-2022 Note Date & Type Note Facility 09-08-2022 History of Present illness Narrative ckd 3a to 2 with chronic anemia w/u by hemegfr 55 february 2022egfr 74 aug 2022htnno cp no palpitationsocc lightheadedness or dizzinessno claudicationprostate cancerDr P orders psadr proanapsa s/p xrturo checks every 6 monthsno dysuria no hematuria nocturia x 3carotid artery stenosisby life screen states mindo not recommend [facility] Work Phone: History of Present illness Narrative 09-11-2021 Note Date & Type Note Facility 09-11-2021 History of Present illness Narrative blood 1 weekfirst noticed on TP bright red streakno painh/o hemorrhoid2 days ago had floater in stool dried dropno blood thinnersno asafxhx mother colon cancercolonoscopy 2013h/o prostate cancerxrt last treatment was february Dr Lowery last f/u 3 weeks and psa was non detectablehas had some lost of controlrosno abd pain no n/v [facility] Work Phone: History of Present illness Narrative 01-12-2021 Note Date & Type Note Facility 01-12-2021 History of Present illness Narrative Prostate adenocarcinomaDr Proanabx in e past neg initially but 6tjh bx was +for cancerno changes with urination x nocturia x 2finished XRT last week December 2020no rectal pain no blood in urinesome bowel incontinenceFoot drop, leftback surgery related 2014Had MRI left shoulder in february 2019 has been recommend needs shoulder replacementHyperlipidemialipids good December 2020Hypothyroidism NOStherapeuticnormal energy levelLumbar disc herniationif stands too long or lifts with backSpinal stenosis of lumbar region with radiculopathypain is okay as long as does not labor standards director one spot for very longno meds neededhtngood controlBorderline egfr but normal January 20192019not on nsaidsrecommend tylenolcolonoscopy 2022Review of SystemsRespiratory: Cough in the am with post nasal drip , No shortness of breath, No sputum production, No wheezing.Cardiovascular: No chest pain, No palpitations.all other systems have been reviewed and are negative except as noted in the HPI. [facility] Work Phone: Evaluation note Note Date & Type Note Facility documented in this encounter [facility] Work Phone: Evaluation note Note Date & Type Note Facility documented in this encounter [facility] Work Phone: History of Present illness Narrative Note Date & Type Note Facility History of Present illness Narrative The patient is being seen for the subsequent annual wellness visit.Past Medical, Surgical and Family History: reviewed and updated in chart.Interval History: Patient has not been hospitalized previously. 2015 back surgeryMedications and Supplements: Medications and supplements, including calcium and vitamins reviewed and updated in chart.No, the patient is not using opioids.Patient Self Assessment of Health Status: fair.Tobacco use: Non-UserAlcohol use: Non-UserIllicit drug use: Non-UserCurrent diet: does consume caffeine.Exercise Frequency: the patient does not exercise.Depression/Suicide Screening: .During the past 2 weeks, the patient has not felt down, depressed or hopeless.During the past 2 weeks, the patient has not felt little interest or pleasure in doing things.Hearing Impairment: none.Cognitive Impairment: No cognitive impairment observed.11:10 clock normal.Bathing: performs independently.Dressing: performs independently.Walking: performs independently.Bladder: continent.Managing Finances: performs independently.Shopping: performs independently.Managing Medications: performs independently.Housework / Basic Home Maintenance: performs independently.Falls Risk Screening:. KAMLESH has not fallen in the last 6 months.Home safety risk factors: loose rugs.Advance directives:. Patient has living will. Patient has healthcare POA.Patient's End of Life Decisions: I agree to follow the patient's decisions. Concerns with the patient's end of life decisions: dner.Additional Information: 09/22 back pain no meds otc taken.Prostate adenocarcinomaDr Malachi sees him in 2 weeksbx in the past neg initially but 6tjh bx was +for cancerno changes with urination x nocturia every hourfinished XRT last week December 2020no blood in urinesome bowel incontinenceFoot drop, leftback surgery related 2014Had MRI left shoulder in february 2019 has been recommend needs shoulder replacementHyperlipidemialipids good Jne 2020Hypothyroidism NOStherapeuticnormal energy levelLumbar disc herniationif stands too long or lifts with backSpinal stenosis of lumbar region with radiculopathypain is okay as long as does not labor standards director one spot for very longno meds neededhtngood controlBorderline egfr but normal January 20192019not on nsaidsrecommend tylenolcolonoscopy 2022Review of SystemsRespiratory: Cough in the am with post nasal drip , No shortness of breath, No sputum production, No wheezing.Cardiovascular: No chest pain, No palpitations.all other systems have been reviewed and are negative except as noted in the HPI. [facility] Work Phone: History of Present illness Narrative Note Date & Type Note Facility History of Present illness Narrative The patient is being seen for the subsequent annual wellness visit.Past Medical, Surgical and Family History: reviewed and updated in chart.Interval History: Patient has not been hospitalized previously.Medications and Supplements: Review of all medications by a prescribing practitioner or clinical pharmacist (such as prescriptions, OTCs, herbal therapies and supplements) documented in the medical record.No, the patient is not using opioids.Patient Self Assessment of Health Status: good.Tobacco use: Non-UserAlcohol use: Non-UserIllicit drug use: Non-UserCurrent diet: well balanced diet, does consume adequate fluids and does consume caffeine.Exercise Frequency: the patient does not exercise.Depression/Suicide Screening: .During the past 2 weeks, the patient has not felt down, depressed or hopeless.During the past 2 weeks, the patient has not felt little interest or pleasure in doing things.Hearing Impairment: none.Cognitive Impairment: No cognitive impairment observed, patient or family reported no cognitive impairment.CLOCK 11:10 CORRECT.Bathing: performs independently.Dressing: performs independently.Walking: performs independently.Managing Finances: performs independently.Shopping: performs independently.Managing Medications: performs independently.Housework / Basic Home Maintenance: performs independently.Falls Risk Screening:. KAMLESH has not fallen in the last 6 months. His fall did not result in injury.Advance directives:. Advanced Care Planning discussed and documented advance care plan or surrogate decision maker documented in the medical record. Patient has living will. Patient has no healthcare POA.Concerns with the patient's end of life decisions: DNR.ckd 3a to 2 with chronic anemia w/u by hemegfr 55 february 2022htnno cp no palpitationsprostate cancerDr P orders psadr proanapsa s/p xrturo checks every 6 monthsno dysuria no hematuria nocturia x 3all rhinstates not on allegramild sneezing -[facility] Work Phone: Summary Purpose Family History No Family History Records Found Mother Name Dates Details Family history of malignant neoplasm of colon(V16.0, Z80.0) Status:Active Family history of cardiac di sorder(V17.49, Z82.49) Status:Active Father Name Dates Details Family history of cardiac di sorder(V17.49, Z82.49) Status:Active Mother Name Dates Details Family history of malignant neoplasm of colon(V16.0, Z80.0) Status:Active Family history of cardiac di sorder(V17.49, Z82.49) Status:Active Father Name Dates Details Family history of cardiac di sorder(V17.49, Z82.49) Status:Active Unknown Family Member Name Dates Details Family history of malignant neoplasm of colon: Mother(V16.0, Z80.0) Status:Active Family history of cardiac di sorder: Mother, Father(V17.49, Z82.49) Status:Active Unknown Family Member Name Dates Details Family history of cardiac di sorder: Mother, Father(V17.49, Z82.49) Status:Active Family history of malignant neoplasm of colon: Mother(V16.0, Z80.0) Status:Active Unknown Family Member Name Dates Details Family history of malignant neoplasm of colon: Mother(V16.0, Z80.0) Status:Active Family history of cardiac di sorder: Mother, Father(V17.49, Z82.49) Status:Active Unknown Family Member Name Dates Details Family history of malignant neoplasm of colon: Mother(V16.0, Z80.0) Status:Active Family history of cardiac di sorder: Mother, Father(V17.49, Z82.49) Status:Active Unknown Family Member Name Dates Details Family history of malignant neoplasm of colon: Mother(V16.0, Z80.0) Status:Active Family history of cardiac di sorder: Mother, Father(V17.49, Z82.49) Status:Active Unknown Family Member Name Dates Details Family history of malignant neoplasm of colon: Mother(V16.0, Z80.0) Status:Active Family history of cardiac di sorder: Mother, Father(V17.49, Z82.49) Status:Active Unknown Family Member Name Dates Details Family history of malignant neoplasm of colon: Mother(V16.0, Z80.0) Status:Active Family history of cardiac di sorder: Mother, Father(V17.49, Z82.49) Status:Active Unknown Family Member Name Dates Details Family history of malignant neoplasm of colon: Mother(V16.0, Z80.0) Status:Active Family history of cardiac di sorder: Mother, Father(V17.49, Z82.49) Status:Active Advance Directives No Advanced Directives Records FoundNo Advanced Directives Records FoundNo Advanced Directives Records FoundNo Advanced Directives Records FoundNo Advanced Directives Records FoundNo Advanced Directives Records FoundNo Advanced Directives Records Found Chief Complaint 1 yr mdck.mdck and medicare wellness exam.Pt. c/o blood in the stool x 1.5 weeks.* 1 YR MED REFILL * ANNUAL MEDICARE WELLNESS 6 month mdck. Reason for Referral Specialty Diagnoses / Procedures Referred By Contac t Referred To Contact Radiology Diagnoses Wheezing Acute cough Procedures XR chest 2 views Michaela Clark, SHUTTLER CAR-OPHTHALMOLOGIST [address] [id number] Referral ID Status Reason Start Date Expiration Date Visits Requested Visits Authorized [id number] Authorized Perform Procedure 04/18/2023 10/15/2023 1 1 Additional Source Comments (unrecognized sect ion and content) No Status Records FoundNo Status Records FoundNo Status Records FoundNo Status Records FoundNo Status Records FoundNo Status Records FoundNo Status Records Found INFORMATION SOURCE (unrecogn ized section and content) DATE CREATED AUTHOR AUTHOR'S ORGANIZ ATION 01/25/2019 [facility] DATE CREATED AUTHOR AUTHOR'S ORGANIZ ATION 09/09/2022 [employer] DATE CREATED AUTHOR AUTHOR'S ORGANIZ ATION 03/13/2023 [facility] DATE CREATED AUTHOR AUTHOR'S ORGANIZ ATION 03/16/2023 [facility] DATE CREATED AUTHOR AUTHOR'S ORGANIZ ATION 04/19/2023 [facility] DATE CREATED AUTHOR AUTHOR'S ORGANIZ ATION 05/05/2023 [facility] <item><item> Privacy Markings (unrecogniz ed section and content) Section Author: Raisa Falcon PROHIBITION ON REDISCLOSURE OF CONFIDENTIAL INFORMATION This notice accompanies a disclosure of information concerning a client made to you with the consent of such client. Section Author: Raisa Falcon PROHIBITION ON REDISCLOSURE OF CONFIDENTIAL INFORMATION This notice accompanies a disclosure of information concerning a client made to you with the consent of such client. 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 This clinical summary was aggregated from multiple sources. Caution should be exercised in using it in the provision of clinical care. This summary normalizes information from multiple sources, and as a consequence, information in this document may materially change the coding, format and clinical context of patient data. In addition, data may be omitted in some cases. CLINICAL DECISIONS SHOULD BE BASED ON THE PRIMARY CLINICAL RECORDS. [employer] provides no warranty or guarantee of the accuracy or completeness of information in this document.
[2023-07-31 11:02] LABS: PSA,Total- Diagnostic 0.02 ng/mL (0.0-4.0)
== END | disposition home or self-care (01) ==
LOC: LAB 09:00
PROVIDERS: PCP Family Medicine; Referring Provider Urology; Visit Provider Urology
DX: C61 Malignant neoplasm of prostate (principal)
CPT/HCPCS: 36415; 84153

== ENCOUNTER → 2024-07-28 | Outpatient (CLI) | payer MEDICARE, BC, SELFPAY ==
[2024-07-28 11:48] LABS: PSA,Total- Diagnostic < 0.01 ng/mL (0.0-4.0)
== END | disposition home or self-care (01) ==
LOC: LAB 10:56
PROVIDERS: PCP Family Medicine; Referring Provider Urology; Visit Provider Urology
DX: C61 Malignant neoplasm of prostate (principal)
CPT/HCPCS: 36415; 84153